=== PATIENT | male | born 1985 | race Hispanic/Latino ===

== ENCOUNTER 2020-02-24 20:40 | Emergency (ER) | payer SELFPAY ==
[2020-02-24 20:58] VITALS: O2SAT 96
[2020-02-24] MEDS ORDERED: ONDANSETRON INJ 4 MG/2 ML VIAL IV ONE (21:04)
[2020-02-24] MEDS ORDERED: SODIUM CHLORIDE 0.9% 1000ML 1,000 ML IVS ONE (21:04)
[2020-02-24] MEDS ORDERED: DIPHENOXYLATE HCL/ATROPINE 2.5 MG TAB PO ONE (21:05)
--- NOTE | 2020-02-24 21:08 | ED.PDOC ---
History of Present Illness - General Chief Complaint: Abdominal Pain Stated Complaint: abdomen pain since 0800 Time Seen by Provider: 02/24/20 21:04 Additional Information: Patient is a 34-year-old male who presents to the ED with chief complaint of diffuse abdominal cramping. Patient indicates symptoms began today and are associated with vomiting and diarrhea. Patient denies hematemesis, bloody stools or black stools. Patient denies fever, chills, chest pain, shortness of breath. Patient indicates his pain is only mild and what is concerning him most is the vomiting and diarrhea. Patient feels generally weak. He denies myalgia. Patient's had no history of chronic abdominal complaints. Patient had no previous surgeries on his abdomen. Review of Systems - Review of Systems Constitutional: States: no symptoms reported. Denies: chills, fever Respiratory: States: no symptoms reported. Denies: cough, short of breath Cardiology: Denies: chest pain, palpitations Gastrointestinal/Abdominal: States: abdominal pain, diarrhea, nausea, vomiting Genitourinary: States: no symptoms reported. Denies: dysuria Musculoskeletal: Denies: muscle pain Skin: States: no symptoms reported. Denies: rash All other Systems: Reviewed and Negative Past Medical History (General) - Patient Medical History Hx Seizures: No Hx Stroke: No Hx Dementia: No Hx Asthma: No Hx of COPD: No Hx Cardiac Disorders: No Hx Congestive Heart Failure: No Hx Pacemaker: No Hx Hypertension: No Hx Thyroid Disease: No Hx Diabetes: No Hx Gastroesophageal Reflux: No Hx Renal Disease: No Hx Cancer: No Hx of HIV: No Hx Hepatitis C: No Hx MRSA: No Surgical History: no surgical history - Vaccination History Hx Tetanus, Diphtheria Vaccination: No Hx Influenza Vaccination: No - Social History Hx Alcohol Use: No Family Medical History - Family History Mother Family History: Unknown Physical Exam - Physical Exam General Appearance: Alert, No apparent distress, Obese, Well Developed, Well Nourished Neck: supple, normal inspection Respiratory: lungs clear, normal breath sounds, no respiratory distress, no accessory muscle use Cardiovascular/Chest: normal peripheral pulses, regular rate, rhythm, no edema, no gallop, no JVD, no murmur Gastrointestinal/Abdominal: normal bowel sounds, non tender, soft, no organomegaly, no pulsatile mass Back Exam: normal inspection, no CVA tenderness 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 02/24/20 22:18 Patient reassessed and is feeling slightly better. Patient's labs are u nremarkable and his abdomen is benign. Patient still complains of abdominal cramping and I discussed with him obtaining CT abdomen and pelvis. Patient declines saying that he wishes a trial of outpatient treatment and if his symptoms persist or worsen he will return to the ED. Vital signs stable, patient is NAD and looks clinically well and I believe is safe for discharge with outpatient follow-up. Follow-up instructions, discharge instructions and return to ED precautions discussed with patient. Patient voices understanding and willingness to comply with instructions. All laboratory and radiographic results have been discussed with the patient, and all questions answered. Patient is happy with plan. - Results/Orders Results/Orders: 02/24/20 21:04 IV:Start .ONCE Laboratory Results - last 24 hr 02/24/20 02/24/20 02/24/20 21:00 21:31 21:31 WBC 10.7 RBC 4.99 Hgb 15.7 Hct 44.7 MCV 89.4 MCH 31.4 H MCHC 35.1 RDW 13.1 Plt Count 218 MPV 7.5 Absolute Neuts (auto) 7.30 H Absolute Lymphs (auto) 2.70 Absolute Monos (auto) 0.60 Absolute Eos (auto) 0.10 Absolute Basos (auto) 0.00 Neutrophils % 68.5 Lymphocytes % 25.4 Monocytes % 5.3 Eosinophils % 0.5 L Basophils % 0.3 Sodium 136 Potassium 4.1 Chloride 103 Carbon Dioxide 26 Anion Gap 11.1 L BUN 13 Creatinine 0.70 BUN/Creatinine Ratio 18.6 Random Glucose 111 H Serum Osmolality 272.8 L Calcium 9.0 Total Bilirubin 0.7 AST 37 ALT 58 Alkaline Phosphatase 56 Serum Total Protein 7.0 Albumin 3.9 Globulin 3.1 Albumin/Globulin Ratio 1.3 Lipase 48 Urine Color Yellow Urine Appearance Clear Urine pH 5.5 Ur Specific [place] 1.025 Urine Protein Negative Urine Glucose (UA) Negative Urine Ketones Negative Urine Blood Negative Urine Nitrite Negative Urine Bilirubin Negative Urine Urobilinogen 0.2 Ur Leukocyte Esterase Negative Urine RBC 0 Urine WBC 0 Ur Epithelial Cells 0 Urine Bacteria 0 Departure - Departure Clinical Impression: Vomiting and diarrhea, Abdominal cramping Time of Disposition: 22:20 Disposition: Discharge to Home or Self Care Condition: Good Departure Forms: ED Discharge - Pt. Copy, Patient Portal Self Enrollment Instructions: DI for Abdominal Pain-Adult Referrals: PENNY VU MD [Active Staff] - 1-5 Days Prescriptions: Dicyclomine HCl [Bentyl] 20 mg PO Q8H PRN #20 tab PRN Reason: Abdominal Cramping Loperamide HCl [Imodium A-D] 2 mg PO Q8H PRN #20 tab PRN Reason: Diarrhea Promethazine Tab [Phenergan Tablet] 25 mg PO Q6H PRN #12 tab PRN Reason: Vomiting Home Medications: Ambulatory Orders Dicyclomine HCl [Bentyl] 20 mg PO Q8H PRN #20 tab 02/23/ Loperamide HCl [Imodium A-D] 2 mg PO Q8H PRN #20 tab 02/23/ Promethazine Tab [Phenergan Tablet] 25 mg PO Q6H PRN #12 tab 02/23/
[2020-02-24] MEDS ORDERED: MORPHINE SULFATE INJ 10 MG/ML VIAL IV ONE (21:38)
[2020-02-24 22:05] VITALS: BP 131/77; TEMP 97.5
[2020-02-24] MEDS ORDERED: KETOROLAC TROMETHAMINE INJ 30 MG/ML VIAL IV ONE (22:23)
== END 2020-02-24 22:34 | disposition home or self-care (01) ==
LOC: ER 20:40
DX: R10.84 Generalized abdominal pain (principal); R11.2 Nausea with vomiting, unspecified; R19.7 Diarrhea, unspecified
CPT/HCPCS: 80053; 81001; 83690; 85025; J1885; J2270; J2405; J7030